=== PATIENT | male | born 1950 | race Caucasian/White ===

== ENCOUNTER 2017-09-09 10:04 | Emergency (ER) | payer MEDICARE, OTHER ==
[~2017-09-09] VITALS: Ht 172.7 cm; Wt 95.3 kg
[~2017-09-09 10:04] MED LIST: ADULT LOW DOSE81 MG PO; AMLODIPINE BESYL5 MG PO; AMOXICILLIN875 MG PO; ATORVASTATIN CA10 MG PO; AZITHROMYCIN250 MG PO; CARVEDILOL25 MG PO; COREG; DILTIAZEM HCL30 MG PO; EXFORGE 10/320; EXFORGE PO; FISH OIL 500 M1 EAC1 PO; HYDROCODONE-AP1 EAC6 PO; HYTRIN 1 MG PO; IBUPROFEN 400400 M2 PO; LIPITOR 10 MG10 M1 PO; LIPITOR80 MG PO; MAXIDEX5 ML OP; NAPROSYN375 MG PO; NIASPAN750 MG; NORVASC5 MG PO; PAXIL10 MG; TYLENOL325 MG PO; VENTOLIN HFA 1818 GM INH; VITAMIN D-32000 UNIT PO; VITAMIN E400 UNIT PO
[2017-09-09 10:30] LABS: ABSOLUTE BASOPHILS 0.1 thou/uL (0.0-0.2); ABSOLUTE EOSINOPHILS 0.4 thou/uL (0.0-0.7); ABSOLUTE LYMPHOCYTES 3.5 thou/uL (0.8-5.3); ABSOLUTE MONOCYTES 1.3 thou/uL (0.0-1.2); BASOPHILS 0.9 %; EOSINOPHILS 3.1 %; HEMATOCRIT 44.5 % (42.0-52.0); HEMOGLOBIN 15.4 gm/dL (14.0-18.0); LYMPHOCYTES 31.3 %; MCHC 34.6 g/dL (28.0-37.0); MCV 89.5 fL (80.0-100.0); MONOCYTES 11.3 %; MPV 8.9 fl. (7.2-11.1); NUCLEATED RBCS 0 /100WBC; PLATELET COUNT* 226 thou/uL (150-400); POLYS 53.4 %; RBC 4.97 mil/uL (4.50-6.00); RDW-CV 14.6 % (10.5-14.5); WBC 11.2 thou/uL (4.0-11.0)
[2017-09-09 10:43] LABS: ANION GAP 10 mmol/L (7-16); BUN 22 mg/dL (7-18); CHLORIDE 101 mmol/L (98-107); CO2 27 mmol/L (21-32); CREATININE 1.3 mg/dL (0.6-1.3); GLUCOSE 101 mg/dL (70-99); POTASSIUM 3.8 mmol/L (3.5-5.1); SODIUM 138 mmol/L (136-145)
[2017-09-09 10:45] LABS: TROPONIN-I LEVEL <0.06 ng/mL (<0.06)
[2017-09-09 10:47] LABS: ALBUMIN 3.7 g/dL (3.4-5.0); ALKALINE PHOSPHATASE 83 U/L (46-116); LIPASE 163 U/L (73-393); SGOT 29 U/L (15-37); SGPT 45 U/L (30-65); TOTAL BILIRUBIN 0.6 mg/dL (<0.1-1.0); TOTAL PROTEIN 8.3 g/dL (6.4-8.2)
--- NOTE | 2017-09-09 15:28 | EKG ---
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: : 1950 Requested By: Annabella Magana Order Number: [id number] MD: Antonino Terrazas Measurements Intervals [employer] Rate: 62 P: 32 MD: 187 QRS: 73 QRSD: 102 T: 41 QT: 423 QTc: 430 Interpretive Statements Sinus rhythm Inferior infarct, old Baseline wander in lead(s) V4,V5 Compared to ECG 05/10/2015 15:42:44 Sinus bradycardia no longer present Myocardial infarct finding still present Electronically Signed On 09-09-2017 15:28:11 COMPUTATIONAL SCIENTIST by Antonino Terrazas [email or web address] <ELECTRONICALLY SIGNED> By: Antonino Terrazas MD, [facility] 09/09/17 1528 1010 [id number] Antonino Terrazas MD, [facility] /EPI
--- NOTE | 2017-09-09 17:09 | EXE ---
[place] [address] STRESS ECHOCARDIOGRAM Name: INGA CONNELLY Room: [facility]#: [id number] Admission: 09/09/17 Attend Phys: Discharge: Date of : 50 Date of Service: 09/09/17 1709 Report #: [id number] THIS REPORT FOR: //name// APPROVED REPORT Exam: Stress Echocardiogram Indication: Chest pain Patient Location: ER Stress Nurse: Alexandria Fried RN Supervising Physician: Antonino Terrazas MD Status: routine Ht: 5 ft 8 in HR: 59 bpm BP: 161/82 mmHg Rhythm: NSR Medical History Medical History: CAD s/p CABG Cardiac Risk Factors: Hyperlipidemia, HTN Previous Cardiac Procedures: CABG Procedure The patient underwent an Exercise Stress Test using the Adi Protocol. Blood pressure, heart rate, and EKG were monitored. An Echocardiogram was performed by denture technician in four stages in quad fashion. At peak stress, four selected images were obtained and placed side by side with resting images for comparison. Echo Enhancing Agent Indication: Endocardial border delineation Agent(s) / Amount(s) Used: Optison 8 cc Stress Test Details Stress Test: Exercise stress testing was performed using a Adi protocol. HR Resting HR: 59 bpm Max Heart Rate (APMHR): 154 bpm Max HR Achieved: 136 bpm Target HR (85% APMHR): 130 bpm % of APMHR: 88 Recovery HR: 82 bpm HR response to stress: Normal HR response to stress BP Resting BP: 161/82 mmHg Max BP: 220/84 [place] [address] STRESS ECHOCARDIOGRAM Name: INGA CONNELLY Room: [facility]#: [id number] Admission: 09/09/17 Attend Phys: Discharge: Date of : 50 Date of Service: 09/09/17 1709 Report #: [id number] Recovery BP: 143/77 mmHg ECG Resting ECG: Sinus Rhythm Stress ECG: Sinus Rhythm ST Change: Normal Recovery ECG: Sinus Rhythm Clinical Reason for Termination: Maximal effort Stress Symptoms: Fatigue Exercise duration: 8 min 47 sec Highest Stage Achieved: Stage 3: 3.4 mph at 14% grade. Exercise capacity: 10.16 METs Stress ECG Conclusion Negative for ischemia Pre-Stress Echo The resting Echocardiogram showed normal left ventricular contractility with an estimated Ejection Fraction of about 55-60%. The septum is baseline wall motion abnormality, prior sternotomy present Post-Stress Echo LV chamber size decreases, LV ejection fraction increases, no new wall motion abnormalities are seen. Conclusion Clinical Response: Non-ischemic Exercise Capacity: Average Stress ECG Response: Non-ischemic Stress Echo Images: Non-ischemic Negative TM stress echo. Other Information Technically limited study due to poor endocardial definition. <Conclusion> Negative TM stress echo. <ELECTRONICALLY SIGNED> By: Antonino Terrazas MD, FACC 09/09/171708 08 08 Antonino Terrazas MD, FACC /INF
[2017-09-09 17:25] VITALS: BP 166/89
== END 2017-09-09 17:26 | disposition home or self-care (01) ==
LOC: M.ERS 10:04
PROVIDERS: Personal Emergency Response Attendant
DX: I25.10 Atherosclerotic heart disease of native coronary artery without angina pectoris (principal); R07.89 Other chest pain; I10 Essential (primary) hypertension; E78.00 Pure hypercholesterolemia, unspecified; Z88.5 Allergy status to narcotic agent; F10.99 Alcohol use, unspecified with unspecified alcohol-induced disorder

== ENCOUNTER → 2018-12-25 | Outpatient (CLI) | payer MEDICARE, OTHER ==
[2018-12-25 10:34] LABS: URINE BILIRUBIN NEGATIVE (Negative); URINE BLOOD NEGATIVE (Negative); URINE CLARITY CLEAR; URINE COLOR YELLOW; URINE GLUCOSE-RANDOM NEGATIVE (Negative); URINE KETONES NEGATIVE (Negative); URINE LEUKOCYTES-REFLEX NEGATIVE (Negative); URINE NITRITE-REFLEX NEGATIVE (Negative); URINE PROTEIN NEGATIVE (Negative); URINE UROBILINOGEN 0.2 E.U./dl (0.2-1.0)
[2018-12-25 10:37] LABS: ABSOLUTE BASOPHILS 0.1 thou/uL (0.0-0.2); ABSOLUTE EOSINOPHILS 0.4 thou/uL (0.0-0.7); ABSOLUTE LYMPHOCYTES 3.2 thou/uL (0.8-5.3); ABSOLUTE MONOCYTES 0.5 thou/uL (0.0-1.2); ABSOLUTE NEUTROPHILS 4.5 thou/uL (1.6-8.1); BASOPHILS 0.6 %; EOSINOPHILS 4.1 %; HEMATOCRIT 43.8 % (42.0-52.0); HEMOGLOBIN 15.1 gm/dL (14.0-18.0); LYMPHOCYTES 37.5 %; MCH 30.5 pg (26.0-34.0); MCHC 34.6 g/dL (28.0-37.0); MCV 88.2 fL (80.0-100.0); MONOCYTES 6.1 %; MPV 8.7 fl. (7.2-11.1); NUCLEATED RBCS 0 /100WBC; PLATELET COUNT* 233 thou/uL (150-400); POLYS 51.7 %; RBC 4.97 mil/uL (4.50-6.00); RDW-CV 14.5 % (10.5-14.5); WBC 8.7 thou/uL (4.0-11.0)
[2018-12-25 10:53] LABS: CALCIUM 9.3 mg/dL (8.5-10.1); CREATININE 1.5 mg/dL (0.6-1.3); MAGNESIUM 1.7 mg/dL (1.8-2.4); POTASSIUM 3.9 mmol/L (3.5-5.1)
[2018-12-25 11:02] LABS: CALCIUM 9.2 mg/dL (8.5-10.1); CREATININE 1.5 mg/dL (0.6-1.3); PHOSPHORUS* 4.2 mg/dL (2.5-4.9)
[2018-12-25 18:08] LABS: IgA 457 mg/dL (61-437); IgG 1621 mg/dL (700-1600); IgM 33 mg/dL (20-172)
== END ==
LOC: M.LAB 09:59
PROVIDERS: Internal Medicine
DX: I12.9 Hypertensive chronic kidney disease with stage 1 through stage 4 chronic kidney disease, or unspecified chronic kidney disease (principal); N18.3 Chronic kidney disease, stage 3 (moderate); E78.00 Pure hypercholesterolemia, unspecified

== ENCOUNTER → 2019-01-02 | Outpatient (CLI) | payer MEDICARE, OTHER | LOC: M.ULTRA 11:30 | DX: I12.9 Hypertensive chronic kidney disease with stage 1 through stage 4 chronic kidney disease, or unspecified chronic kidney disease (principal); N18.3 Chronic kidney disease, stage 3 (moderate); N28.1 Cyst of kidney, acquired; E78.5 Hyperlipidemia, unspecified ==

== ENCOUNTER → 2019-02-20 | Outpatient (CLI) | payer MEDICARE, OTHER ==
[2019-02-20 09:27] LABS: ABSOLUTE BASOPHILS 0.1 thou/uL (0.0-0.2); ABSOLUTE EOSINOPHILS 0.3 thou/uL (0.0-0.7); ABSOLUTE LYMPHOCYTES 2.8 thou/uL (0.8-5.3); ABSOLUTE NEUTROPHILS 4.3 thou/uL (1.6-8.1); BASOPHILS 0.7 %; EOSINOPHILS 3.5 %; HEMOGLOBIN 15.3 gm/dL (14.0-18.0); MCV 88.3 fL (80.0-100.0); MONOCYTES 11.5 %; MPV 8.9 fl. (7.2-11.1); NUCLEATED RBCS 0 /100WBC; PLATELET COUNT* 233 thou/uL (150-400); POLYS 51.3 %; RDW-CV 14.4 % (10.5-14.5); WBC 8.3 thou/uL (4.0-11.0)
[2019-02-20 09:35] LABS: URINE BILIRUBIN NEGATIVE (Negative); URINE BLOOD NEGATIVE (Negative); URINE CLARITY CLEAR; URINE COLOR YELLOW; URINE GLUCOSE-RANDOM NEGATIVE (Negative); URINE KETONES NEGATIVE (Negative); URINE LEUKOCYTES-REFLEX NEGATIVE (Negative); URINE NITRITE-REFLEX NEGATIVE (Negative); URINE PROTEIN NEGATIVE (Negative); URINE SPECIFIC GRAVITY 1.015 (1.005-1.030); URINE UROBILINOGEN 0.2 E.U./dl (0.2-1.0)
[2019-02-20 10:02] LABS: CALCIUM 9.6 mg/dL (8.5-10.1); CREATININE 1.8 mg/dL (0.6-1.3); MAGNESIUM 1.7 mg/dL (1.8-2.4); PHOSPHORUS* 4.7 mg/dL (2.5-4.9); POTASSIUM 4.2 mmol/L (3.5-5.1)
== END ==
LOC: M.LAB 09:06
PROVIDERS: Internal Medicine
DX: I12.9 Hypertensive chronic kidney disease with stage 1 through stage 4 chronic kidney disease, or unspecified chronic kidney disease (principal); N18.3 Chronic kidney disease, stage 3 (moderate); E78.5 Hyperlipidemia, unspecified

== ENCOUNTER 2019-08-13 02:51 | Emergency (ER) | payer MEDICARE, OTHER ==
[~2019-08-13] VITALS: Ht 172.7 cm; Wt 86.2 kg
[2019-08-13 03:55] LABS: ABSOLUTE BASOPHILS 0.1 thou/uL (0.0-0.2); ABSOLUTE EOSINOPHILS 0.3 thou/uL (0.0-0.7); ABSOLUTE LYMPHOCYTES 2.8 thou/uL (0.8-5.3); ABSOLUTE MONOCYTES 1.5 thou/uL (0.0-1.2); ABSOLUTE NEUTROPHILS 7.1 thou/uL (1.6-8.1); BASOPHILS 1.1 %; EOSINOPHILS 2.3 %; HEMATOCRIT 42.2 % (42.0-52.0); HEMOGLOBIN 14.6 gm/dL (14.0-18.0); MCH 30.4 pg (26.0-34.0); MCHC 34.5 g/dL (28.0-37.0); MCV 88.1 fL (80.0-100.0); MONOCYTES 12.4 %; MPV 8.5 fl. (7.2-11.1); NUCLEATED RBCS 0 /100WBC; POLYS 60.2 %; RDW-CV 14.4 % (10.5-14.5); WBC 11.9 thou/uL (4.0-11.0)
[2019-08-13 04:18] LABS: CALCIUM 9.5 mg/dL (8.5-10.1); CREATININE 1.5 mg/dL (0.6-1.3); POTASSIUM 3.7 mmol/L (3.5-5.1)
[2019-08-13 04:22] LABS: ALBUMIN 3.5 g/dL (3.4-5.0); TOTAL BILIRUBIN 0.5 mg/dL (<0.1-1.0); TOTAL PROTEIN 8.4 g/dL (6.4-8.2); URIC ACID* 6.7 mg/dL (2.6-7.2)
[2019-08-13 04:39] LABS: PLATELET COUNT* 270 thou/uL (150-400)
[2019-08-13 05:19] LABS: ESR (SEDRATE) 50 mm/hr (0-20)
[2019-08-13] MEDS ORDERED: MITIGARE0.6 MG PO (05:25)
[2019-08-13] MEDS ORDERED: HYDROCODON-ACE1 EAC8 PO (05:25)
[2019-08-13 05:37] VITALS: BP 144/74
== END 2019-08-13 05:37 | disposition home or self-care (01) ==
LOC: M.ERS 02:51
PROVIDERS: Emergency Medicine
DX: M10.9 Gout, unspecified (principal); I10 Essential (primary) hypertension; E78.00 Pure hypercholesterolemia, unspecified; Z90.49 Acquired absence of other specified parts of digestive tract; Z88.1 Allergy status to other antibiotic agents

== ENCOUNTER → 2019-09-17 | Outpatient (CLI) | payer MEDICARE, OTHER ==
[~2019-09-17] MED LIST changes: +HYDROCODON-ACE1 EAC8 PO; +MITIGARE0.6 MG PO
[2019-09-17 12:17] LABS: ABSOLUTE BASOPHILS 0.1 thou/uL (0.0-0.2); ABSOLUTE EOSINOPHILS 0.3 thou/uL (0.0-0.7); ABSOLUTE LYMPHOCYTES 3.3 thou/uL (0.8-5.3); ABSOLUTE NEUTROPHILS 4.7 thou/uL (1.6-8.1); BASOPHILS 1.5 %; HEMATOCRIT 40.8 % (42.0-52.0); HEMOGLOBIN 14.4 gm/dL (14.0-18.0); LYMPHOCYTES 35.1 %; MCH 30.9 pg (26.0-34.0); MCHC 35.4 g/dL (28.0-37.0); MCV 87.4 fL (80.0-100.0); MONOCYTES 10.4 %; MPV 8.3 fl. (7.2-11.1); NUCLEATED RBCS 0 /100WBC; PLATELET COUNT* 257 thou/uL (150-400); RBC 4.67 mil/uL (4.50-6.00); RDW-CV 14.4 % (10.5-14.5); WBC 9.3 thou/uL (4.0-11.0)
[2019-09-17 12:30] LABS: CALCIUM 8.8 mg/dL (8.5-10.1); CREATININE 1.4 mg/dL (0.6-1.3); MAGNESIUM 1.5 mg/dL (1.8-2.4); PHOSPHORUS* 3.2 mg/dL (2.5-4.9); POTASSIUM 3.3 mmol/L (3.5-5.1)
[2019-09-17 12:35] LABS: CALCIUM 8.6 mg/dL (8.5-10.1); CREATININE 1.4 mg/dL (0.6-1.3); PHOSPHORUS* 3.3 mg/dL (2.5-4.9)
[2019-09-17 17:03] LABS: URINE BILIRUBIN NEGATIVE (Negative); URINE BLOOD NEGATIVE (Negative); URINE CLARITY CLEAR; URINE COLOR YELLOW; URINE GLUCOSE-RANDOM NEGATIVE (Negative); URINE KETONES NEGATIVE (Negative); URINE LEUKOCYTES NEGATIVE (Negative); URINE NITRITE NEGATIVE (Negative); URINE PROTEIN NEGATIVE (Negative); URINE UROBILINOGEN 0.2 E.U./dl (0.2-1.0)
== END ==
LOC: M.LAB 11:53
PROVIDERS: Internal Medicine
DX: I12.9 Hypertensive chronic kidney disease with stage 1 through stage 4 chronic kidney disease, or unspecified chronic kidney disease (principal); N18.3 Chronic kidney disease, stage 3 (moderate)

== ENCOUNTER → 2020-08-08 | Outpatient (CLI) | payer MEDICARE, OTHER ==
[2020-08-08 11:05] LABS: URINE BILIRUBIN NEGATIVE (Negative); URINE BLOOD NEGATIVE (Negative); URINE CLARITY CLEAR; URINE COLOR YELLOW; URINE GLUCOSE-RANDOM NEGATIVE (Negative); URINE KETONES NEGATIVE (Negative); URINE LEUKOCYTES NEGATIVE (Negative); URINE NITRITE NEGATIVE (Negative); URINE PROTEIN 2+ (Negative); URINE SPECIFIC GRAVITY 1.015 (1.005-1.030)
[2020-08-08 11:08] LABS: ABSOLUTE BASOPHILS 0.1 thou/uL (0.0-0.2); ABSOLUTE EOSINOPHILS 0.4 thou/uL (0.0-0.7); ABSOLUTE LYMPHOCYTES 2.9 thou/uL (0.8-5.3); ABSOLUTE MONOCYTES 0.6 thou/uL (0.0-1.2); ABSOLUTE NEUTROPHILS 4.4 thou/uL (1.6-8.1); BASOPHILS 0.7 %; EOSINOPHILS 4.3 %; HEMATOCRIT 43.8 % (42.0-52.0); HEMOGLOBIN 15.2 gm/dL (14.0-18.0); LYMPHOCYTES 35.3 %; MCH 31.5 pg (26.0-34.0); MCHC 34.7 g/dL (28.0-37.0); MCV 90.8 fL (80.0-100.0); MONOCYTES 6.8 %; NUCLEATED RBCS 0 /100WBC; PLATELET COUNT* 226 thou/uL (150-400); POLYS 52.9 %; RBC 4.82 mil/uL (4.50-6.00); RDW-CV 14.2 % (10.5-14.5); WBC 8.3 thou/uL (4.0-11.0)
[2020-08-08 11:19] LABS: CALCIUM 8.7 mg/dL (8.5-10.1); CREATININE 1.3 mg/dL (0.6-1.3); MAGNESIUM 1.9 mg/dL (1.8-2.4); PHOSPHORUS* 2.2 mg/dL (2.5-4.9); POTASSIUM 3.7 mmol/L (3.5-5.1); URIC ACID* 6.6 mg/dL (2.6-7.2)
[2020-08-08 11:22] LABS: CALCIUM 8.7 mg/dL (8.5-10.1); CREATININE 1.4 mg/dL (0.6-1.3); PHOSPHORUS* 2.4 mg/dL (2.5-4.9)
[2020-08-08 11:31] LABS: BACTERIA None Seen /HPF (None Seen); SQUAMOUS NONE SEEN /LPF (0-3); URINE RBC None Seen /HPF (0-2); URINE WBC 0-5 Rare /HPF (0-5)
[2020-08-08 11:32] LABS: HYALINE CASTS 0-3 Few /LPF (None Seen); MUCUS None Seen strn/LPF (None Seen)
[2020-08-08 11:38] LABS: CRYSTALS None Seen /LPF (None Seen)
== END ==
LOC: M.LAB 10:36
PROVIDERS: ATTEND Internal Medicine
DX: N18.30 Chronic kidney disease, stage 3 unspecified (principal); M10.9 Gout, unspecified